=== PATIENT | male | born 1985 | race Caucasian/White ===

== ENCOUNTER 2017-06-12 12:14 | Emergency (ER) | payer MEDICAID, OTHER ==
--- NOTE | 2017-06-12 13:02 | Emergency Department Record ---
History of Present Illness - General Chief complaint: Extremity Problem Stated complaint: FINGER INJURY Time Seen by Provider: 06/12/17 12:32 Source: Patient Mode of Arrival: Ambulatory Limitations: No limitations - History of Present Illness Initial comments: 31 yo male presents with a crushed left finger injury and felt like he was going to pass out immediately after. No head injury, seizure, or head ache. He he become woozy in the past with injuries. No history of cardiac disease or arrhythmia. He believes his last tetanus was about 10 years ago. Onset/Timin -: Hour(s) Location: Left, Hand History of Same: No Severity scale (1-10): 3 Quality: Aching Improves with: Nothing Worsens with: Other (injury) - Related Data Home Medications Medication Instructions Recorded Confirmed Last Taken No Home Med [NO HOME MEDS] 06/12/17 06/12/17 Unknown Allergies Allergy/AdvReac Type Severity Reaction Status Date / Time prednisone Allergy NAUSEA AND Verified 06/12/17 12:29 VOMITING Travel Screening - Travel/Exposure Within Last 30 Days Have you traveled within the last 30 days?: No - Travel/Exposure Within Last Year Have you traveled outside the [place] in the last year?: No - Additonal Travel Details Have you been exposed to anyone with a communicable illness?: No - Travel Symptoms Symptom Screening: None Review of Systems Constitutional: Denies: Chills, Fever, Malaise, Weakness Eyes: Denies: Eye discharge ENT: Denies: Congestion, Throat pain Respiratory: Denies: Cough Cardiovascular: Reports: Syncope. Denies: Chest pain Endocrine: Denies: Fatigue Gastrointestinal: Denies: Abdominal pain, Diarrhea, Nausea, Vomiting Musculoskeletal: Reports: As per HPI, Arthralgia Skin: Reports: Bruising Neurological: Denies: Confusion, Headache, Numbness, Tingling, Tremors, Vertigo , Weakness Psychiatric: Denies: Anxiety Hematological/Lymphatic: Denies: Blood Clots, Easy bleeding, Easy bruising, Swollen glands Past Medical History - SOCIAL HISTORY Smoking Status: Never smoker Alcohol Use: Occasional Drug Use: None - RESPIRATORY Hx Respiratory Disorders: No - CARDIOVASCULAR Hx Cardio Disorders: No - NEURO Hx Neuro Disorders: No - GI Hx GI Disorders: No - Hx Genitourinary Disorders: No - ENDOCRINE Hx Endocrine Disorders: No - MUSCULOSKELETAL Hx Musculoskeletal Disorders: No - PSYCH Hx Psych Problems: No - HEMATOLOGY/ONCOLOGY Hx Hematology/Oncology Disorders: No Family Medical History Any Significant Family History?: Yes Physical Exam - General General Appearance: Alert, Oriented x3, Cooperative, No acute distress Limitations: No limitations - Head Head exam: Atraumatic, Normal inspection - Eye Eye exam: Normal appearance, PERRL. negative: Conjunctival injection - ENT ENT exam: Normal exam Ear exam: Normal external inspection Nasal Exam: Normal inspection Mouth exam: Normal external inspection - Neck Neck exam: Normal inspection - Respiratory Respiratory exam: Normal lung sounds bilaterally. negative: Respiratory distress, Rhonchi, Stridor, Wheezes - Cardiovascular Cardiovascular Exam: Regular rate, Normal rhythm, Normal heart sounds Peripheral Pulses: 2+: Radial (R), Radial (L) - GI/Abdominal GI/Abdominal exam: Soft - Rectal Rectal exam: Deferred - exam: Deferred - Extremities Extremities exam: Full ROM, Normal capillary refill. negative: Normal inspection, Tenderness Image of Finger Tip: 1 - supreficial laceration 2 - subungual hematoma - Back Back exam: Denies: CVA tenderness (R), CVA tenderness (L) - Neurological Neurological exam: Alert, Oriented X3. negative: Motor sensory deficit - Psychiatric Psychiatric exam: Normal affect, Normal mood. negative: Agitated, Anxious - Skin Skin exam: Dry, Intact, Normal color, Warm Course Vital Signs 06/12/17 12:24 Temperature 98.2 F Pulse Rate 64 Respiratory 18 Rate Blood Pressure 107/61 Pulse Ox 97 - Reevaluation(s) Reevaluation #1: EKG 12:51 Sinus rhythm, rate 54, intervals normal, axis normal, ST normal 06/12/17 13:11 06/12/17 13:21 The XR was negative for fracture. Questionable calcification. Less likely FB I discussed the recommendation nail trephenation The nail was prepped with betadine Cautery was used to make a hole Immediate relief and release of blood under pressure The small skin abrasion was clean and approximated with benzoin and steristrips We discussed home care and reasons to return Disposition Disposition: Discharge Clinical Impression: Subungual hematoma, Syncope Disposition: Home, Self-Care Condition: (1) Good Instructions: Syncope (ED), Hematoma (ED) Forms: Patient Portal Access Time of Disposition: 13:38 Quality - Quality Measures Quality Measures: N/A - Blood Pressure Screening Does Patient Have Any of the Following: No Blood Pressure Classification: Normal BP Reading Systolic Measurement: 107 Diastolic Measurement: 61 Screening for High Blood Pressure: < Normal BP, F/U Not Required > [G8783]
[2017-06-12] MEDS ORDERED: Diph,Pert(Acell),Tet Vac 0.5 ML SYR IM ONE (13:07)
--- NOTE | 2017-06-13 21:52 | RADIOLOGY REPORT ---
EXAM: FINGER(S), LEFT HISTORY: CRUSH INJURY BETWEEN PIECES OF STEEL. TECHNIQUE: Three views of the left index finger. COMPARISON: None. ENCOUNTER: Initial. FINDINGS: There is normal bone mineralization. No definite acute fracture, dislocation, or destructive bone lesion is seen. There is a tiny hyperdensity noted along the lateral margin of the tuft of the second distal phalanx measuring 0.9 mm seen on the AP view. This cannot be further localized. No definite donor site. The articular relations are maintained. There is distal soft tissue swelling. IMPRESSION: 1. NO DEFINITE ACUTE FRACTURE NOR DISLOCATION. 2. DISTAL SOFT TISSUE SWELLING. A 0.9 MM CALCIFIC DENSITY NOTED PROJECTING AT THE LEVEL OF THE LATERAL MARGIN OF THE TUFT OF THE SECOND DISTAL PHALANX. NO DONOR SITE. THIS CANNOT BE FURTHER LOCALIZED. FOREIGN BODY CANNOT BE ENTIRELY EXCLUDED. JOB NUMBER: [id number] MTDD
== END 2017-06-12 13:53 | disposition home or self-care (01) ==
LOC: ER 12:14
DX: S60.022A Contusion of left index finger without damage to nail, initial encounter (principal); R55 Syncope and collapse; W23.0XXA Caught, crushed, jammed, or pinched between moving objects, initial encounter
CPT/HCPCS: 11740; 73140; 90715; 93005; 93010; 96372; 99284